=== PATIENT | female | born 1995 | race Caucasian/White ===

== ENCOUNTER 2017-08-24 14:45 | Emergency (ER) | payer SELFPAY ==
[~2017-08-24] VITALS: Ht 147.3 cm; Wt 43.1 kg
[2017-08-24 15:00] VITALS: BP 128/77
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
[2017-08-24 16:42] LABS: COLOR,URINE YELLOW
[2017-08-24 16:43] LABS: BACTERIA,URINE 0 /HPF (0-FEW); BILIRUBIN,URINE NEG (NEG); CLARITY,URINE HAZY; GLUCOSE,URINE NEG (NEG); NITRITE,URINE NEG (NEG); SQUAMOUS EPITHELIAL CELL,UR MANY /LPF; UROBILINOGEN,URINE 1 mg/dL (0.2 mg/dL)
[2017-08-24] MEDS ORDERED: CIPR250T30 PO (17:04)
[2017-08-26 20:07] LABS: CHLAMYDIA PROBE Negative (Negative)
== END 2017-08-24 17:12 | disposition home or self-care (01) ==
LOC: ER 14:45
DX: N39.0 Urinary tract infection, site not specified (principal); G89.29 Other chronic pain
CPT/HCPCS: 36415; 81001; 81025; 87086; 87491; 87591; 99284; Q0111

== ENCOUNTER 2017-09-02 19:44 | Emergency (ER) | payer SELFPAY ==
[~2017-09-02] VITALS: Ht 147.3 cm; Wt 45.1 kg
[~2017-09-02 19:44] MED LIST: CIPR250T30 PO
[2017-09-02 19:45] VITALS: BP 122/83
[2017-09-02] MEDS ORDERED: NAPROXEN 500 MG TABLET PO ONE (20:30)
--- NOTE | 2017-09-02 20:31 | PHYS DOC ---
Past History Past Medical History: Other Past Surgical History: No Surgical History Smoking: Non-smoker Alcohol Use: Occasionally Drug Use: None Adult General Chief Complaint Chief Complaint: FACE PAIN HPI HPI 22-year-old female presents with right-sided jaw pain. Patient was sitting on the couch and just moving her jaw around when she had a pop followed by a sudden , severe pain in the right side of her jaw just in front of her ear. Since that time, it has been difficult for her to open her mouth. The pain is still 7 out of 10. 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 She denies trauma or injury. She denies fever or chills. She has no other complaints.[] Review of Systems Review of Systems Constitutional: Denies fever or chills [] Eyes: Denies change in visual acuity, redness, or eye pain [] HENT: Jaw pain[] Respiratory: Denies cough or shortness of breath [] Cardiovascular: No additional information not addressed in HPI [] GI: Denies abdominal pain, nausea, vomiting, bloody stools or diarrhea [] : Denies dysuria or hematuria [] Musculoskeletal: Denies back pain or joint pain [] Integument: Denies rash or skin lesions [] Neurologic: Denies headache, focal weakness or sensory changes [] Endocrine: Denies polyuria or polydipsia [] All other systems were reviewed and found to be within normal limits, except as documented in this note. Allergies Allergies Allergies Coded Allergies Type Severity Reaction Last Updated Verified No Known Drug Allergies 09/02/17 No Physical Exam Physical Exam Constitutional: Well developed, well nourished, no acute distress, non-toxic appearance. [] HENT: Normocephalic, atraumatic, bilateral external ears normal, oropharynx moist, no oral exudates, nose normal. Pain with opening of jaw, limited ability due to pain, no obvious joint malalignment, tenderness to palpation of right TMJ. [] Eyes: PERRLA, EOMI, conjunctiva normal, no discharge. [] Neck: Normal range of motion, no tenderness, supple, no stridor. [] Cardiovascular:Heart rate regular rhythm, no murmur [] Lungs & Thorax: Bilateral breath sounds clear to auscultation [] Abdomen: Bowel sounds normal, soft, no tenderness, no masses, no pulsatile masses. [] Skin: Warm, dry, no erythema, no rash. [] Back: No tenderness, no CVA tenderness. [] Extremities: No tenderness, no cyanosis, no clubbing, ROM intact, no edema. [] Neurologic: Alert and oriented X 3, normal motor function, normal sensory function, no focal deficits noted. [] Psychologic: Affect normal, judgement normal, mood normal. [] Current Patient Data Vital Signs Vital Signs Date Time Temp Pulse Resp B/P (MAP) Pulse Ox O2 Delivery O2 Flow Rate FiO2 09/02/17 19:45 98.5 86 99 EKG EKG [] Radiology/Procedures Radiology/Procedures [] Course & Med Decision Making Course & Med Decision Making Pertinent Labs and Imaging studies reviewed. (See chart for details) The patient's x-ray does not show dislocation. I have given the patient 500 mg of naproxen, 10 mg of Flexeril and a [place] 5/325. She is having some improvement in pain. I will discharge her with 10 5/325 [place] for breakthrough pain. I will also advise that she take 600 mg of ibuprofen 3 times a day for the next couple of days for inflammation. Her discharge instructions include some exercises as the pain improves. She should follow-up with a dentist as needed. [] Bernard Disclaimer Bernard Disclaimer This electronic medical record was generated, in whole or in part, using a voice recognition dictation system. Departure Departure: Referrals: PCP,NO (PCP) Scripts Hydrocodone Bit/Acetaminophen (NORCO 5-325 TABLET) 1 Each Tablet 1 TAB PO PRN Q6HRS PRN for PAIN, #10 TAB 0 Refills Prov: JACLYN RANDLE DO 09/02/17 JACLYN RANDLE DO Sep 02, 2017 20:31
[2017-09-02] MEDS ORDERED: CYCLOBENZAPRINE 10 MG TABLET. PO ONE (20:45)
[2017-09-02] MEDS ORDERED: HYDR-971 PO (21:33)
--- NOTE | 2017-09-02 21:39 | RAD ---
History: Jaw pain. Comparison: None. Findings: Lam and right lateral views of the facial bones. No displaced nasal bone fractures are identified. Paranasal sinuses appear clear. Mastoid air cells appear relatively well aerated. Limited visualization of the mandible is without evidence of acute fracture. Impression: No acute radiographic abnormality identified. Note, examination was not optimized to evaluate the mandible. Electronically signed by: Zia Mishra MD (09/02/2017 9:35 PM) [facility]
[2017-09-02] MEDS ORDERED: HYDROcodone/APAP 5/325MG 1 TAB TABLET PO ONE (21:45)
== END 2017-09-02 21:39 | disposition home or self-care (01) ==
LOC: ER 19:44
DX: R68.84 Jaw pain (principal); X50.9XXA Other and unspecified overexertion or strenuous movements or postures, initial encounter; Y93.89 Activity, other specified; Y99.8 Other external cause status; Y92.89 Other specified places as the place of occurrence of the external cause
CPT/HCPCS: 70140; 81025; 99284

== ENCOUNTER 2019-08-17 11:24 | Emergency (ER) | payer SELFPAY ==
[~2019-08-17] VITALS: Ht 147.3 cm; Wt 47.0 kg
[~2019-08-17 11:24] MED LIST changes: +HYDR-3165 PO
[2019-08-17 11:44] VITALS: BP 113/75
[2019-08-17] MEDS ORDERED: ACETAMINOPHEN 500 MG TABLET PO ONE (11:45)
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
--- NOTE | 2019-08-17 12:33 | RAD ---
RS Compliance Statement: One or more of the following individualized dose reduction techniques were utilized for this examination: 1. Automated exposure control 2. Adjustment of the mA and/or kV according to patient size 3. Use of iterative reconstruction technique CT HEAD WITHOUT CONTRAST History: Reason: head injury / Spl. Instructions: / History: Comparison: None. Procedure: Axial images are obtained of the head from the skull base through the vertex without IV contrast. Findings: 6 mm hypodensity of the right thalamus may be prominent perivascular space versus focal encephalomalacia. The ventricles and sulci are normal for the patient's age. No mass-effect, midline shift, hemorrhage, extra-axial fluid collection, or obvious acute infarction is identified. Basilar cisterns are patent. Bone windows demonstrate no acute calvarial abnormality. The visualized paranasal sinuses are clear. Mastoid air cells are well aerated. IMPRESSION: No acute intracranial abnormality. Electronically signed by: Marcin Colon MD (08/17/2019 12:31 PM) [id number]
== END 2019-08-17 12:53 | disposition home or self-care (01) ==
LOC: ER 11:24
DX: S09.90XA Unspecified injury of head, initial encounter (principal); R51 Headache; R42 Dizziness and giddiness; Z88.5 Allergy status to narcotic agent; W22.8XXA Striking against or struck by other objects, initial encounter; Y93.89 Activity, other specified; Y92.89 Other specified places as the place of occurrence of the external cause; Y99.8 Other external cause status
CPT/HCPCS: 70450; 99284-25

== ENCOUNTER 2019-10-03 01:07 | Emergency (ER) | payer SELFPAY ==
[~2019-10-03] VITALS: Ht 144.8 cm; Wt 45.0 kg
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
[2019-10-03] MEDS ORDERED: MUPIROCIN 2% TOPICAL OINTMENT 22GM TUBE. TP ONE (02:15)
[2019-10-03] MEDS ORDERED: DIPH,PERTUSS(ACELL),TET VAC/PF 0.5 ML SYRINGE. VAX IM ONE (02:15)
[2019-10-03] MEDS ORDERED: IV RINGERS SOLUTION,LACTATED 1,000 ML IV SCH (02:15)
[2019-10-03 02:44] LABS: BASO # 0.1 x10^3/uL (0.0-0.2); BASO % 1 % (0-3); EOS % 0 % (0-3); HEMATOCRIT 43.8 % (36.0-47.0); HEMOGLOBIN 14.3 g/dL (12.0-15.5); LYMPH # 1.3 x10^3/uL (1.0-4.8); LYMPH % 8 % (24-48); MEAN CORPUSCULAR HEMOGLOBIN 31 pg (25-35); MEAN CORPUSCULAR HGB CONC 33 g/dL (31-37); MEAN CORPUSCULAR VOLUME 93 fL (79-100); MONO % 6 % (0-9); NEUT # 13.9 x10^3uL (1.8-7.7); NEUT % 85 % (31-73); PLATELET COUNT 250 x10^3/uL (140-400); RED BLOOD COUNT 4.68 x10^6/uL (3.50-5.40); WHITE BLOOD COUNT 16.2 x10^3/uL (4.0-11.0)
[2019-10-03 03:03] LABS: BARBITURATES NEG (NEG); BENZODIAZEPINES NEG (NEG); CANNABINOIDS POS (NEG); COCAINE NEG (NEG); METHADONE NEG (NEG); OPIATES NEG (NEG); PHENCYCLIDINE NEG (NEG)
[2019-10-03 03:04] LABS: AMPHETAMINE/METHAMPHETAMINE NEG (NEG)
--- NOTE | 2019-10-03 03:08 | EKG ---
[address] [address] Test Date: 2019-10-03 Test Time: 02:34:55 Pat Name: DK HICKMAN Department: Room: Gender: F Jewellery Designer: CHRIS : 1995 Requested By: BREANNA ESPAÑA Order Number: [id number] Reading MD: Measurements Intervals [place] Rate: 77 P: 65 FL: 164 QRS: 88 QRSD: 86 T: 49 QT: 380 QTc: 432 Interpretive Statements SINUS RHYTHM QRS(T) CONTOUR ABNORMALITY CONSIDER HIGH LATERAL MYOCARDIAL DAMAGE POSSIBLY ABNORMAL ECG RI6.02 No previous ECG available for comparison
[2019-10-03 03:10] LABS: BILIRUBIN,URINE NEG (NEG); CLARITY,URINE CLEAR; COLOR,URINE COLORLESS; GLUCOSE,URINE NEG (NEG); NITRITE,URINE NEG (NEG); RBC,URINE RARE /HPF (0-2); UROBILINOGEN,URINE 0.2 mg/dL (0.2 mg/dL); WBC,URINE RARE /HPF (0-4)
[2019-10-03 03:11] LABS: BACTERIA,URINE 0 /HPF (0-FEW); SQUAMOUS EPITHELIAL CELL,UR OCC /LPF
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
[2019-10-03 04:04] LABS: % BANDS 10 % (0-9); % LYMPHS 17 % (24-48); % MONOS 8 % (0-10); % SEGS 65 % (35-66); PLT ESTIMATE ADEQUATE (ADEQUATE)
[2019-10-03] MEDS ORDERED: CEPH-264 PO (05:40)
[2019-10-03 05:44] LABS: ALBUMIN 3.8 g/dL (3.4-5.0); CREATININE 0.8 mg/dL (0.6-1.0); GFR 87.4; TOTAL PROTEIN 7.3 g/dL (6.4-8.2)
[2019-10-03] MEDS ORDERED: ACETAMINOPHEN 500 MG TABLET PO ONE (05:45)
[2019-10-03] MEDS ORDERED: CEPHALEXIN 250 MG CAPSULE PO ONE (05:45)
[2019-10-03 05:46] LABS: DIRECT BILIRUBIN 0.2 mg/dL (0.0-0.2); MAGNESIUM 2.1 mg/dL (1.8-2.4); POTASSIUM 3.3 mmol/L (3.5-5.1); TOTAL BILIRUBIN 0.6 mg/dL (0.2-1.0)
[2019-10-03 06:00] VITALS: BP 121/89
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
== END 2019-10-03 06:03 | disposition home or self-care (01) ==
LOC: ER 01:07
DX: S02.2XXA Fracture of nasal bones, initial encounter for closed fracture (principal); S00.83XA Contusion of other part of head, initial encounter; S60.221A Contusion of right hand, initial encounter; D72.829 Elevated white blood cell count, unspecified; R04.0 Epistaxis; F12.10 Cannabis abuse, uncomplicated; Z88.5 Allergy status to narcotic agent; Z72.0 Tobacco use; Y08.89XA Assault by other specified means, initial encounter; Y93.89 Activity, other specified; Y92.89 Other specified places as the place of occurrence of the external cause; Y99.8 Other external cause status
CPT/HCPCS: 36415; 70450; 70486; 71046; 72125; 72131; 73130; 80048; 80076; 80307; 81001; 81025; 82550; 83690; 83735; 84443; 84484; 85007; 85025; 85610; 85730; 90471; 90715; 93005; 96361; 96374; 96376; 99285; J3010; J7120

== ENCOUNTER 2019-10-10 17:10 | Emergency (ER) | payer SELFPAY ==
[~2019-10-10] VITALS: Ht 144.8 cm; Wt 45.2 kg
[~2019-10-10 17:10] MED LIST changes: +CEPH-264 PO
[2019-10-10 17:20] VITALS: BP 122/75
[2019-10-10] MEDS ORDERED: KETOROLAC 30 MG/ML VIAL. ONE (17:35)
[2019-10-10] MEDS ORDERED: ACETAMINOPHEN 500 MG TABLET PO ONE ×2 (17:35→18:00)
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
[2019-10-10] MEDS ORDERED: IV NORMAL SALINE 500ML 500 ML IV ONE (18:00)
[2019-10-10] MEDS ORDERED: KETOROLAC 30 MG/ML VIAL. IVP ONE (18:00)
[2019-10-10] MEDS ORDERED: DEXAMETHASONE SOD PHOS 10 MG/ML VIAL. IV ONE (18:30)
== END 2019-10-10 18:14 | disposition home or self-care (01) ==
LOC: ER 17:10
DX: R51 Headache (principal); F31.9 Bipolar disorder, unspecified; F20.9 Schizophrenia, unspecified
CPT/HCPCS: 96374; 96375; 99284; J1100; J1885; J7040; 96361

== ENCOUNTER 2020-09-21 02:33 | Emergency (ER) | payer SELFPAY ==
[~2020-09-21] VITALS: Ht 144.8 cm; Wt 45.2 kg
[2020-09-21 02:33] VITALS: BP 122/87
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
[2020-09-21] MEDS ORDERED: NAPROXEN 500 MG TABLET PO ONE (04:00)
== END 2020-09-21 03:58 | disposition home or self-care (01) ==
LOC: ER 02:33 → EEVIPCON 02:33 → ER 03:58
DX: S40.012A Contusion of left shoulder, initial encounter (principal); F31.9 Bipolar disorder, unspecified; F20.9 Schizophrenia, unspecified; Z88.5 Allergy status to narcotic agent; Y08.89XA Assault by other specified means, initial encounter; Y93.89 Activity, other specified; Y92.89 Other specified places as the place of occurrence of the external cause; Y99.8 Other external cause status
CPT/HCPCS: 73030; 99283